=== PATIENT | male | born 1995 | race Two or more races ===

== ENCOUNTER 2024-07-30 00:13 | Observation (INO) ==
--- NOTE | 2024-07-30 00:44 | DR.SORETHR ---
HPI Time Seen Time Seen by Provider: 07/30/24 00:35 Primary Care Physician Primary Care Physician: RIGO HPI Comment HPI Comment: History as below. Complaints Chief Complaint Doctors Comments: Patient is a 28-year-old male in the emergency room with cough congestion and sore throat for 2 weeks. Patient said he has productive cough with yellow sputum. Patient said he has slight wheezing. He denies fever, vomiting or dysuria. He has slight wheezing and chest tightness. Patient said he is a non-smoker and denies history of asthma. Chief Complaint:: Pt ambulatory into ER c/o dry cough, nasal congestion and sore throat x2 weeks. Pt states he has coughed so much he is beginning to lose his breath and feels like he is breathing at a fast rate. Self Treatment fo Chief Complaint: Mucinex COVID-19 Coronavirus risk:travel/contact w/high risk person: No Has patient experienced Coronavirus symptoms: Yes Coronavirus symptoms experienced: Coughing Reviewed Nurses Notes Reviewed: Yes Source History Provided: Friend Mode of Arrival Mode of Arrival: Ambulatory Timing Onset of Chief Complaint: 07/15/24 PMH PMH Past Medical History: No Past Surgical History: No Surgical History: No History Family History History of Family Medical Conditions: No Social History Lives With: Family Lives Where: Home Travel Risk Coronavirus risk:travel/contact w/high risk person: No Has patient experienced Coronavirus symptoms: Yes Coronavirus symptoms experienced: Coughing Infectious screening In the last 2 months have you had wt loss of >10#?: NO Have you had fever, night sweats or hemotysis?: No Have you traveled outside the country in the last 6 months?: Yes Travel History Location: [place] Isolation: Droplet ROS Review of Systems Constitutional: No Symptoms Reported, See HPI and Malaise; negative Fever Eyes: No Symptoms Reported and See HPI ENTM: See HPI, Nose Discharge, Nose Congestion and Throat Pain Respiratoy: See HPI, Productive Cough, Short of Breath and Wheezing Cardiovascular: See HPI and Chest Pain (Chest tightness.) Gastrointestinal/Abdominal: No Symptoms Reported and See HPI; negative Abdominal Pain, Diarrhea, Nausea or Vomiting Genitourinary: No Symptoms Reported and See HPI; negative Dysuria Neurological: See HPI and Headache; negative Dizziness Musculoskeletal: No Symptoms Reported and See HPI; negative Muscle Pain Integumentary: No Symptoms Reported and See HPI Hematologic/Lymphatic: No Symptoms Reported and See HPI Endocrine: No Symptoms Reported and See HPI Psychiatric: No Symptoms Reported and See HPI All Other Systems: Reviewed and Negative PE Vital Signs Vitals: Vital Signs Temperature 98.5 F Pulse Rate [Right Radial] 83 Pulse Rate [Right Radial] 80 Pulse Rate [Right Radial] 80 Pulse Rate 83 Pulse Rate 84 Pulse Rate 90 Pulse Rate 97 Respiratory Rate 22 Respiratory Rate 24 Blood Pressure 127/65 O2 Sat by Pulse Oximetry 98 O2 Sat by Pulse Oximetry 94 O2 Sat by Pulse Oximetry 88 O2 Sat by Pulse Oximetry 90 O2 Sat by Pulse Oximetry 93 O2 Sat by Pulse Oximetry 95 O2 Sat by Pulse Oximetry 89 General Limitations: No Limitations General Appearance: Alert, In Distress and Other (chest retracting.) Head Head Exam: Normal Inspection and Atraumatic Eyes Eye exam: Normal Appearance and PERRL; negative Scleral Icterus or Conjunctival Injection ENT ENT Exam: Normal Exam, Normal Oropharynx, Normal External Ear Exam and TM's Normal Bilaterally External Ear Exam: Normal External Inspection; negative Mastoid Tenderness TM/Canal Exam: Bilateral: Normal Nose Exam: Normal Nose Exam Mouth Exam: Normal Inspection Throat Exam: Normal Inspection; negative Tonsillar Erythema, Tonsillomegaly or Tonsillar Exudate Neck Neck Exam: Normal Inspection and Trachea Midline; negative Tenderness Chest Chest Inspection: Symmetric Chest Wall Rise and Other (chest wall retraction.); negative Tenderness Respiratory Respiratory Exam: Normal Lung Sounds Bilat Respiratory Exam: Bilateral: Wheezing and Bilateral: Rhonchi Cardiovascular Cardiovascular Exam: Regular Rate, Normal Rhythm and Normal Heart Sounds; negative Systolic Murmur or Diastolic Murmur Abdominal Exam Abdominal Exam: Normal Inspection, Normal Bowel Sounds and Soft; negative Tenderness Extremities Extremities Exam: Normal Inspection and Normal Capillary Refill Back Back Exam: Normal Inspection; negative (R) CVA Tenderness or (L) CVA Tenderness Neurologic Neurological Exam: Alert and Oriented X3 Psychiatric Psychiatric Exam: Normal Affect and Normal Mood Skin Skin Exam: Warm and Intact MDM Differential Diagnosis Differential Diagnosis: Streptococcal Pharyngitis, Viral Pharyngitis, URI and Other (Bronchitis, pneumonia, viral syndrome) COURSE Treatment Treatment: See orders done while patient was in the emergency room. Labs and chest x-ray discussed with patient. ABG indicate patient is hypoxic. Patient is placed on 3 L of oxygen. Patient was given Levaquin 750 mg IV piggyback. He is also placed on normal saline, 25 cc an hour. Patient is admitted to hospital for further management. Consultation Consultation Comments: Patient discussed with Dr. Cleary. He will admit patient to hospital for further management. Education/Counseling Education/Counseling: Patient Educated On: Diagnosis ROR Labs Reviewed Laboratory Results Reviewed?: Yes 07/30/24 04:18 07/30/24 04:18 Laboratory: WBC 13.6 X10^3/uL (3.6-10.0) H 07/30/24 00:56 RBC 5.10 X10^6/uL (4.7-6.0) 07/30/24 00:56 Hgb 13.7 g/dL (13.5-18.0) 07/30/24 00:56 Hct 41.1 % (42.0-54.0) L 07/30/24 00:56 MCV 80.6 fL (80.0-100.0) 07/30/24 00:56 MCH 26.8 pg (27.0-34.0) L 07/30/24 00:56 MCHC 33.3 g/dL (33.0-35.0) 07/30/24 00:56 RDW 13.7 % (11.6-16.5) 07/30/24 00:56 Plt Count 302 X10^3/uL (150.0-450.0) 07/30/24 00:56 MPV 7.8 fL (7.4-11.0) 07/30/24 00:56 Neut % (Auto) 73.0 % (42.0-75.0) 07/30/24 00:56 Lymph % (Auto) 15.6 % (21.0-51.0) L 07/30/24 00:56 [place] % (Auto) 5.6 % (0.0-13.0) 07/30/24 00:56 Eos % (Auto) 4.8 % (0.9-2.9) H 07/30/24 00:56 Baso % (Auto) 1.0 % (0.2-1.0) 07/30/24 00:56 Neut # (Auto) 9.9 x10^3/uL (2.2-4.8) H 07/30/24 00:56 Lymph # (Auto) 2.1 X10^3/uL (1.3-2.9) 07/30/24 00:56 [place] # (Auto) 0.8 x10^3/uL (0.3-0.8) 07/30/24 00:56 Eos # (Auto) 0.7 x10^3/uL (0.0-0.2) H 07/30/24 00:56 Baso # (Auto) 0.1 X10^3/uL (0.0-0.1) 07/30/24 00:56 Absolute Nucleated RBC 0.0 /100WBC 07/30/24 00:56 D-Dimer 0.35 ug/ml (0.0-0.57) 07/30/24 01:56 Sample Site Rr 07/30/24 01:08 ABG pH 7.440 (7.35-7.45) 07/30/24 01:08 ABG pCO2 39.0 mmHg (35.0-45.0) 07/30/24 01:08 ABG pO2 55.0 mmHg (80.0-100.0) L 07/30/24 01:08 ABG HCO3 26.5 mmol/L (22-26) H 07/30/24 01:08 ABG O2 Saturation 89.0 % (90-100) L 07/30/24 01:08 ABG Base Excess 2.2 mmol/L (-2.0-2.0) H 07/30/24 01:08 Trevor Test Pos 07/30/24 01:08 A-a Gradient 46.0 mmHg 07/30/24 01:08 FiO2 21.0 07/30/24 01:08 Blood Gas Comments Glenn well ae 07/30/24 01:08 Sodium 141 mmol/L (136-145) 07/30/24 00:56 Corrected Sodium 141 mmol/L (136-145) 07/30/24 00:56 Potassium 3.5 mmol/L (3.5-5.1) 07/30/24 00:56 Chloride 104 mmol/L (98-107) 07/30/24 00:56 Carbon Dioxide 26.6 mmol/L (21-32) 07/30/24 00:56 BUN 13 mg/dL (7-18) 07/30/24 00:56 Creatinine 1.02 mg/dL (0.70-1.30) 07/30/24 00:56 Est GFR (MDRD) Af Amer > 60 (>60) 07/30/24 00:56 Est GFR (MDRD) Non-Af > 60 (>60) 07/30/24 00:56 Glucose 117 mg/dL (65-99) H 07/30/24 00:56 Lactic Acid 0.9 mmol/L (0.4-2.0) 07/30/24 01:56 Calcium 8.6 mg/dL (8.5-10.1) 07/30/24 00:56 Corrected Calcium TNP 07/30/24 00:56 Total Bilirubin 0.70 mg/dL (0.2-1.0) 07/30/24 00:56 AST 38 Units/L (15-37) H 07/30/24 00:56 ALT 47 Units/L (12-78) 07/30/24 00:56 Alkaline Phosphatase 70 Units/L (46-116) 07/30/24 00:56 Total Protein 7.6 g/dL (6.4-8.2) 07/30/24 00:56 Albumin 3.9 g/dL (3.4-5.0) 07/30/24 00:56 Globulin 3.7 g/dL (2.5-4.5) 07/30/24 00:56 Albumin/Globulin Ratio 1.1 Ratio (1.1-2.1) 07/30/24 00:56 SARS-CoV-2 (PCR) Negative (NEGATIVE) 07/30/24 00:35 Influenza Type A (PCR) Negative (NEGATIVE) 07/30/24 00:35 Influenza Type B (PCR) Negative (NEGATIVE) 07/30/24 00:35 RSV (PCR) Negative (NEGATIVE) 07/30/24 00:35 S. pyogenes (TEM-PCR) Not detected (NOT DETECT) 07/30/24 00:35 XRAY XRAY Interpreted by: Self (perihilar prominence.) Opioid Opioid Risk Tool Age ([place] box if 16-45): Yes History of Preadolescent Sexual Abuse: No Total: 1 Total Score Risk Category: Low Risk Copyright: Mishra predicting aberrant behaviors Discharge Plan Diagnosis Discharge Problem: Acute respiratory insufficiency, Hypoxia Pneumonia Qualifiers: Pneumonia type: due to unspecified organism Laterality: right Lung location: l ower lobe of lung Qualified Code(s): J18.9 - Pneumonia, unspecified organism Discharge Plan Patient Disposition: 09 ADMITTED INPATIENT Condition: Stable
[2024-07-30] MEDS: DUONEB 0.5 MG/3 MG (3 mL) NEB ONE ×2 (01:03→07:33)
[2024-07-30 01:05] LABS: BASOPHILS # (AUTO) 0.1 X10^3/uL (0.0-0.1); EOSINOPHILS # (AUTO) 0.7 x10^3/uL (0.0-0.2); EOSINOPHILS % (AUTO) 4.8 % (0.9-2.9); HEMATOCRIT 41.1 % (42.0-54.0); HEMOGLOBIN 13.7 g/dL (13.5-18.0); LYMPHOCYTES # (AUTO) 2.1 X10^3/uL (1.3-2.9); LYMPHOCYTES % (AUTO) 15.6 % (21.0-51.0); MEAN CORPUSCULAR HEMOGLOBIN 26.8 pg (27.0-34.0); MEAN CORPUSCULAR HGB CONC 33.3 g/dL (33.0-35.0); MEAN CORPUSCULAR VOLUME 80.6 fL (80.0-100.0); MEAN PLATELET VOLUME 7.8 fL (7.4-11.0); MONOCYTES # (AUTO) 0.8 x10^3/uL (0.3-0.8); MONOCYTES % (AUTO) 5.6 % (0.0-13.0); NEUTROPHILS # (AUTO) 9.9 x10^3/uL (2.2-4.8); PLATELET COUNT 302 X10^3/uL (150.0-450.0); RED CELL DISTRIBUTION WIDTH 13.7 % (11.6-16.5); WHITE BLOOD COUNT 13.6 X10^3/uL (3.6-10.0)
[2024-07-30 01:13] LABS: ABG ALLEN TEST POS; ABG BASE EXCESS 2.2 mmol/L (-2.0-2.0); ABG HCO3 26.5 mmol/L (22-26)
[2024-07-30 01:16] LABS: ALANINE AMINOTRANSFERASE 47 Units/L (12-78); ALBUMIN 3.9 g/dL (3.4-5.0); ALKALINE PHOSPHATASE 70 Units/L (46-116); ASPARTATE AMINO TRANSFERASE 38 Units/L (15-37); BLOOD UREA NITROGEN 13 mg/dL (7-18); CALCIUM 8.6 mg/dL (8.5-10.1); CARBON DIOXIDE 26.6 mmol/L (21-32); CHLORIDE 104 mmol/L (98-107); COR NA(FOR HYPERGLY) 141 mmol/L (136-145); CREATININE 1.02 mg/dL (0.70-1.30); GLUCOSE 117 mg/dL (65-99); POTASSIUM 3.5 mmol/L (3.5-5.1); SODIUM 141 mmol/L (136-145); TOTAL PROTEIN 7.6 g/dL (6.4-8.2); eGFR NON BLACK RACES > 60 (>60)
[2024-07-30] MEDS: NS 1,000 ML IV 1,000 ML IV SCH (01:46)
[2024-07-30] MEDS: SOLU-Medrol 125 MG VIAL IVP ONE (01:46)
[2024-07-30] MEDS: LEVAQUIN PREMIX IV 750 MG 750 MG/150 ML BAG IV SCH ×2 (01:46→20:10)
[2024-07-30] MEDS ORDERED: TUSSIONEX PENNKINETIC SUSP PO PRN (03:05)
[2024-07-30 03:51] VITALS: BMI 25.8
[2024-07-30] MEDS: DUONEB 0.5 MG/3 MG (3 mL) NEB SCH (04:21)
[2024-07-30 04:52] LABS: BASOPHILS # (AUTO) 0.1 X10^3/uL (0.0-0.1); BASOPHILS % (AUTO) 0.6 % (0.2-1.0); EOSINOPHILS # (AUTO) 0.3 x10^3/uL (0.0-0.2); EOSINOPHILS % (AUTO) 3.5 % (0.9-2.9); HEMATOCRIT 42.4 % (42.0-54.0); HEMOGLOBIN 14.3 g/dL (13.5-18.0); LYMPHOCYTES # (AUTO) 0.9 X10^3/uL (1.3-2.9); LYMPHOCYTES % (AUTO) 9.6 % (21.0-51.0); MEAN CORPUSCULAR HGB CONC 33.8 g/dL (33.0-35.0); MEAN CORPUSCULAR VOLUME 79.9 fL (80.0-100.0); MEAN PLATELET VOLUME 8.2 fL (7.4-11.0); MONOCYTES # (AUTO) 0.2 x10^3/uL (0.3-0.8); MONOCYTES % (AUTO) 2.4 % (0.0-13.0); NEUTROPHILS # (AUTO) 8.1 x10^3/uL (2.2-4.8); NEUTROPHILS % (AUTO) 83.9 % (42.0-75.0); PLATELET COUNT 318 X10^3/uL (150.0-450.0); RED CELL DISTRIBUTION WIDTH 14.1 % (11.6-16.5); WHITE BLOOD COUNT 9.6 X10^3/uL (3.6-10.0)
[2024-07-30 05:03] LABS: ALANINE AMINOTRANSFERASE 44 Units/L (12-78); ALBUMIN 3.8 g/dL (3.4-5.0); ALKALINE PHOSPHATASE 68 Units/L (46-116); ASPARTATE AMINO TRANSFERASE 32 Units/L (15-37); BLOOD UREA NITROGEN 13 mg/dL (7-18); CALCIUM 8.8 mg/dL (8.5-10.1); CARBON DIOXIDE 24.6 mmol/L (21-32); CHLORIDE 102 mmol/L (98-107); CREATININE 0.92 mg/dL (0.70-1.30); GLUCOSE 108 mg/dL (65-99); POTASSIUM 3.4 mmol/L (3.5-5.1); SODIUM 137 mmol/L (136-145); TOTAL PROTEIN 7.7 g/dL (6.4-8.2); eGFR NON BLACK RACES > 60 (>60)
--- NOTE | 2024-07-30 06:58 | RAD ---
EXAMINATION: CHEST, 1 VIEW HISTORY: Pt ambulatory into ER c/o dry cough, nasal congestion and sore throat x2 weeks.; No medical history . COMPARISON STUDY: None. TECHNIQUE: A single view of the chest was obtained. FINDINGS: . Heart size is normal. No acute infiltrates. There is no pneumothorax. Hilar and mediastinal structures and bony structures are unremarkable. . IMPRESSION: No acute process in the chest. THIS IS AN ELECTRONICALLY VERIFIED FINAL REPORT 07/30/2024 6:54 AM - Electronically signed by Lenny Hairston MD
[2024-07-30] MEDS: CONSULT PHARMACY - POTASSIUM & MAGNESIUM XX SCH (07:33)
[2024-07-30] MEDS: PULMICORT NEB TX 0.5 MG NEB SCH (08:11)
[2024-07-30] MEDS: ROBITUSSIN DM PO SCH (08:59)
[2024-07-30] MEDS: VISBIOME PROBIOTIC CAP 112.5 B or equivalent PO SCH (08:59)
[2024-07-30] MEDS: K-DUR TAB 20 MEQ PO ONE (09:00)
--- NOTE | 2024-07-30 11:02 | DR.H&P ---
H&P History & Physical for Day of: H&P Date: 07/30/24 Chief Complaint Chief Complaint: Shortness of breath, cough History of Present Illness History of Present Illness: Mr. Johnson is a 28-year-old male with no pertinent medical problems presented with increased cough and shortness of breath. His symptoms have been gradually worsening for the past 2 weeks. He was taking [id number] medications for cough and Mucinex with no improvement. He did have fever and chills yesterday. Denies any sick contact at home. He recently came from [place] early in June. His symptoms started after his travel. Denies any nausea, vomiting or diarrhea. Denies tobacco use or vaping. ER workup included ABG which did show hypoxia, chest x-ray was negative. D-dimer was negative. WBC was elevated. Rapid flu and COVID were negative, AIT pending. He was started on Levaquin and bronchodilators. He is currently on 3 L nasal cannula. Labs/imaging reviewed: - WBC 9.6 hemoglobin 14.3 potassium 3.4 creatinine 0.92 - AB.44/39/55/26.5 - Chest x-ray: No acute abnormality - D-dimer negative Plan: Wean O2 as tolerated, continue bronchodilators and IS. Continue IV antibiotics. Will add Solu-Medrol [address] chest for further evaluation. Follow AIT results. Continue cough medicine as needed. Continue hydration. Replace electrolytes as per protocol. Monitor a.m. labs and imaging. Time spent for clinical assessment, reviewing labs/imaging, physical exam, decision making and documentation greater than 45 mins. Past Surgical History Surgical History: No History Social History Does patient currently use any type of tobacco product: No Type of Tobacco Use: None Does any household member use tobacco: No Alcohol Use: None Drug Use: None Medications Home Medications: Home Medications Medication Instructions Recorded Confirmed Type NK 07/30/24 07/30/24 History Allergies Allergies Allergy/AdvReac Type Severity Reaction Status Date / Time Penicillins Allergy Severe ANAPHALEXIS Verified 07/30/24 01:33 REACTION Labs 07/30/24 04:18 07/30/24 04:18 Labs: Laboratory WBC 9.6 X10^3/uL (3.6-10.0) 07/30/24 04:18 RBC 5.30 X10^6/uL (4.7-6.0) 07/30/24 04:18 Hgb 14.3 g/dL (13.5-18.0) 07/30/24 04:18 Hct 42.4 % (42.0-54.0) 07/30/24 04:18 MCV 79.9 fL (80.0-100.0) L 07/30/24 04:18 MCH 27.0 pg (27.0-34.0) 07/30/24 04:18 MCHC 33.8 g/dL (33.0-35.0) 07/30/24 04:18 RDW 14.1 % (11.6-16.5) 07/30/24 04:18 Plt Count 318 X10^3/uL (150.0-450.0) 07/30/24 04:18 MPV 8.2 fL (7.4-11.0) 07/30/24 04:18 Neut % (Auto) 83.9 % (42.0-75.0) H 07/30/24 04:18 Lymph % (Auto) 9.6 % (21.0-51.0) L 07/30/24 04:18 [place] % (Auto) 2.4 % (0.0-13.0) 07/30/24 04:18 Eos % (Auto) 3.5 % (0.9-2.9) H 07/30/24 04:18 Baso % (Auto) 0.6 % (0.2-1.0) 07/30/24 04:18 Neut # (Auto) 8.1 x10^3/uL (2.2-4.8) H 07/30/24 04:18 Lymph # (Auto) 0.9 X10^3/uL (1.3-2.9) L 07/30/24 04:18 [place] # (Auto) 0.2 x10^3/uL (0.3-0.8) L 07/30/24 04:18 Eos # (Auto) 0.3 x10^3/uL (0.0-0.2) H 07/30/24 04:18 Baso # (Auto) 0.1 X10^3/uL (0.0-0.1) 07/30/24 04:18 Absolute Nucleated RBC 0.0 /100WBC 07/30/24 04:18 D-Dimer 0.35 ug/ml (0.0-0.57) 07/30/24 01:56 Sample Site Rr 07/30/24 01:08 ABG pH 7.440 (7.35-7.45) 07/30/24 01:08 ABG pCO2 39.0 mmHg (35.0-45.0) 07/30/24 01:08 ABG pO2 55.0 mmHg (80.0-100.0) L 07/30/24 01:08 ABG HCO3 26.5 mmol/L (22-26) H 07/30/24 01:08 ABG O2 Saturation 89.0 % (90-100) L 07/30/24 01:08 ABG Base Excess 2.2 mmol/L (-2.0-2.0) H 07/30/24 01:08 Trevor Test Pos 07/30/24 01:08 A-a Gradient 46.0 mmHg 07/30/24 01:08 FiO2 21.0 07/30/24 01:08 Blood Gas Comments Glenn well ae 07/30/24 01:08 Sodium 137 mmol/L (136-145) 07/30/24 04:18 Corrected Sodium TNP 07/30/24 04:18 Potassium 3.4 mmol/L (3.5-5.1) L 07/30/24 04:18 Chloride 102 mmol/L (98-107) 07/30/24 04:18 Carbon Dioxide 24.6 mmol/L (21-32) 07/30/24 04:18 BUN 13 mg/dL (7-18) 07/30/24 04:18 Creatinine 0.92 mg/dL (0.70-1.30) 07/30/24 04:18 Est GFR (MDRD) Af Amer > 60 (>60) 07/30/24 04:18 Est GFR (MDRD) Non-Af > 60 (>60) 07/30/24 04:18 Glucose 108 mg/dL (65-99) H 07/30/24 04:18 Lactic Acid 0.9 mmol/L (0.4-2.0) 07/30/24 01:56 Calcium 8.8 mg/dL (8.5-10.1) 07/30/24 04:18 Corrected Calcium TNP 07/30/24 04:18 Magnesium 2.1 mg/dL (2.0-2.9) 07/30/24 04:18 Total Bilirubin 0.60 mg/dL (0.2-1.0) 07/30/24 04:18 AST 32 Units/L (15-37) 07/30/24 04:18 ALT 44 Units/L (12-78) 07/30/24 04:18 Alkaline Phosphatase 68 Units/L (46-116) 07/30/24 04:18 Total Protein 7.7 g/dL (6.4-8.2) 07/30/24 04:18 Albumin 3.8 g/dL (3.4-5.0) 07/30/24 04:18 Globulin 3.9 g/dL (2.5-4.5) 07/30/24 04:18 Albumin/Globulin Ratio 1.0 Ratio (1.1-2.1) L 07/30/24 04:18 SARS-CoV-2 (PCR) Negative (NEGATIVE) 07/30/24 00:35 Influenza Type A (PCR) Negative (NEGATIVE) 07/30/24 00:35 Influenza Type B (PCR) Negative (NEGATIVE) 07/30/24 00:35 RSV (PCR) Negative (NEGATIVE) 07/30/24 00:35 S. pyogenes (TEM-PCR) Not detected (NOT DETECT) 07/30/24 00:35 Review of Systems Constitutional: Fever, Chills and Weakness Eyes: No Symptoms Reported ENT: No Symptoms Reported Respiratory: Cough, Shortness of Breath, SOB with Excertion and Sputum Cardiovascular: No Symptoms Reported Gastrointestinal: No Symptoms Reported Genitourinary: No Symptoms Reported Musculoskeletal: No Symptoms Reported Skin: No Symptoms Reported Neurological: No Symptoms Reported Physical Exam Vital Signs: Vital Signs Temperature 98.0 F Temperature 98.2 F Temperature 98.2 F Pulse Rate [Right Radial] 72 Pulse Rate 100 Pulse Rate 89 Pulse Rate 88 Pulse Rate 91 Pulse Rate 99 Pulse Rate 84 Pulse Rate 73 Pulse Rate 85 Pulse Rate 65 Pulse Rate 67 Pulse Rate 66 Pulse Rate 70 Pulse Rate 82 Pulse Rate 68 Pulse Rate 59 Pulse Rate 67 Pulse Rate 67 Pulse Rate 86 Pulse Rate 83 Pulse Rate 72 Respiratory Rate 45 Respiratory Rate 40 Respiratory Rate 34 Respiratory Rate 37 Respiratory Rate 31 Respiratory Rate 38 Respiratory Rate 25 Respiratory Rate 24 Respiratory Rate 27 Respiratory Rate 28 Respiratory Rate 28 Respiratory Rate 29 Respiratory Rate 28 Respiratory Rate 22 Respiratory Rate 32 Blood Pressure [Right Arm] 129/78 Blood Pressure 105/56 Blood Pressure 105/56 Blood Pressure 125/65 Blood Pressure 116/65 Blood Pressure 127/65 Blood Pressure 129/78 O2 Sat by Pulse Oximetry 90 O2 Sat by Pulse Oximetry 95 O2 Sat by Pulse Oximetry 95 O2 Sat by Pulse Oximetry 94 O2 Sat by Pulse Oximetry 93 O2 Sat by Pulse Oximetry 94 O2 Sat by Pulse Oximetry 95 O2 Sat by Pulse Oximetry 95 O2 Sat by Pulse Oximetry 94 O2 Sat by Pulse Oximetry 94 O2 Sat by Pulse Oximetry 94 O2 Sat by Pulse Oximetry 96 O2 Sat by Pulse Oximetry 95 O2 Sat by Pulse Oximetry 94 O2 Sat by Pulse Oximetry 96 O2 Sat by Pulse Oximetry 94 O2 Sat by Pulse Oximetry 95 O2 Sat by Pulse Oximetry 96 O2 Sat by Pulse Oximetry 96 O2 Sat by Pulse Oximetry 72 O2 Sat by Pulse Oximetry 94 Oriented: Normal Respiratory: Diminished Throughout, RLL Exp. Wheeze and LLL Exp. Wheeze Cardiovascular: Tachycardia Auscultation: Bowel Sounds: Normal Palpation: Normal Tenderness: Normal Skin: Normal Musculoskeletal: Normal Psychiatric: Normal Mood Description: Calm Affect: Normal Speech Pattern: Clear Assessment/Plan (1) Acute respiratory failure: Qualifiers: Respiratory failure complication: hypoxia Qualified Code(s): J96.01 - Acute respiratory failure with hypoxia Status: Acute (2) Hypoxia: Status: Acute (3) Pneumonia: Qualifiers: Laterality: right Lung location: lower lobe of lung Pneumonia type: d ue to unspecified organism Qualified Code(s): J18.9 - Pneumonia, unspecified organism Status: Acute (4) Hypokalemia: Status: Acute Review H&P Reviewed: Yes Patient was examined?: Yes
[2024-07-30] MEDS: OMNIPAQUE 350 mg/mL 100 mL BTL 100 ML ONE (11:14)
--- NOTE | 2024-07-30 11:44 | CT ---
EXAMINATION: CHEST W/O CON HISTORY: worsening dyspnea, pt allergic to iodine done noncontrast ; . COMPARISON: Chest x-ray 07/30/2024 TECHNIQUE: Routine axial imaging of the chest was performed. Lack of IV contrast limits diagnostic sensitivity. The above CT scan was done with automated exposure control and the mA and kV was adjusted to obtain quality images according to patient size. FINDINGS: Lungs: Patchy ground-glass opacities within the right upper lobe and right middle lobe may represent infectious or inflammatory process. This could include atypical pneumonia including COVID. Bronchial thickening with atelectasis in the lingula and lower lobes. No suspicious pulmonary nodules or alveolar infiltrates Central Airways: No obstructing endobronchial lesions Pleura: No pleural effusion or pneumothorax Thoracic Aorta: Tapers normally Main Pulmonary Trunk: Normal diameter Lymph Nodes: No pathologic hilar, axillary or mediastinal adenopathy Heart/Pericardium: Normal heart size. No significant pericardial effusion Liver: No acute findings or focal lesions. GB/Biliary: No gallstones or dilated ducts Spleen: Normal size and density Pancreas: No acute findings as visualized Adrenal Glands: No mass Kidneys no hydronephrosis. Abdominal Aorta: Tapers normally Retroperitoneum: No pathologic lymphadenopathy Bowel/Peritoneal Cavity: No acute findings as visualized Osseous Structures: Unremarkable with no acute findings or bony lesions. Other: None IMPRESSION: Ground-glass opacities in the right upper lobe and right middle lobe may represent infectious process including atypical pneumonia or inflammatory process. Follow-up recommended. Bronchial thickening with atelectasis in the lingula and lung bases. The above CT scan was done with automated exposure control and the mA and kV was adjusted to obtain quality images according to patient size THIS IS AN ELECTRONICALLY VERIFIED FINAL REPORT 07/30/2024 11:41 AM - Electronically signed by Lenny Hairston MD
[2024-07-30] MEDS: SOLU-Medrol 125 MG VIAL IVP SCH (12:23)
[2024-07-30] MEDS: XOPENEX 1.25 MG/3 ML NEBULE NEB SCH (20:20)
[2024-07-31] MEDS ORDERED: LEVAQUIN PREMIX IV 750 MG 750 MG/150 ML BAG IV SCH (05:00)
[2024-07-31 05:09] LABS: BASOPHILS % (AUTO) 0.1 % (0.2-1.0); HEMATOCRIT 41.4 % (42.0-54.0); HEMOGLOBIN 13.9 g/dL (13.5-18.0); LYMPHOCYTES # (AUTO) 1.2 X10^3/uL (1.3-2.9); LYMPHOCYTES % (AUTO) 10.9 % (21.0-51.0); MEAN CORPUSCULAR HGB CONC 33.7 g/dL (33.0-35.0); MEAN CORPUSCULAR VOLUME 80.2 fL (80.0-100.0); MEAN PLATELET VOLUME 8.2 fL (7.4-11.0); MONOCYTES # (AUTO) 0.7 x10^3/uL (0.3-0.8); MONOCYTES % (AUTO) 6.2 % (0.0-13.0); NEUTROPHILS % (AUTO) 82.8 % (42.0-75.0); PLATELET COUNT 305 X10^3/uL (150.0-450.0); RED BLOOD COUNT 5.16 X10^6/uL (4.7-6.0); RED CELL DISTRIBUTION WIDTH 14.1 % (11.6-16.5); WHITE BLOOD COUNT 10.9 X10^3/uL (3.6-10.0)
[2024-07-31 05:16] LABS: ALANINE AMINOTRANSFERASE 40 Units/L (12-78); ALBUMIN 3.3 g/dL (3.4-5.0); ALKALINE PHOSPHATASE 70 Units/L (46-116); ASPARTATE AMINO TRANSFERASE 23 Units/L (15-37); BLOOD UREA NITROGEN 12 mg/dL (7-18); CALCIUM 8.8 mg/dL (8.5-10.1); CARBON DIOXIDE 20.3 mmol/L (21-32); CHLORIDE 106 mmol/L (98-107); COR CA(FOR HYPOALB) 9.4 mg/dL (8.5-10.1); COR NA(FOR HYPERGLY) 139 mmol/L (136-145); CREATININE 0.76 mg/dL (0.70-1.30); GLUCOSE 151 mg/dL (65-99); POTASSIUM 4.1 mmol/L (3.5-5.1); SODIUM 138 mmol/L (136-145); TOTAL PROTEIN 7.2 g/dL (6.4-8.2); eGFR NON BLACK RACES > 60 (>60)
--- NOTE | 2024-07-31 10:36 | PCM.PROG ---
Progress Note Progress Note for Day of Date of Exam: 07/31/24 Subjective Subjective: Patient seen at bedside, no acute events overnight. He reports he is feeling better. He is currently admitted for pneumonia and acute respiratory failure. He remains on 3 L nasal cannula. He reports having some cough with mucus. He is currently on antibiotics and steroids. Labs/imaging reviewed: - WBC 10.9 hemoglobin 13.9 potassium 4.1 creatinine 0.76 - Blood cultures pending - CT chest without contrast: Right upper lobe and right middle lobe groundglass opacities, suggestive of viral or atypical pneumonia. Bronchial thickening noted. - AIT pending Plan: Continue to monitor in ICU, wean O2 as tolerated. Continue IV antibiotics, steroids and bronchodilators. Continue IS. Continue hydration, continue cough medicine as needed. Follow AIT results and pending cultures. Replace electrolytes as per protocol. Monitor a.m. labs and imaging. Time spent for clinical assessment, reviewing labs/imaging, physical exam, decision making and documentation greater than 45 mins. Past Medical Family Social History Allergies: Allergies Penicillins Allergy (Severe, Verified 07/30/24 01:33) ANAPHALEXIS REACTION SEAFOOD Allergy (Severe, Verified 07/30/24 11:15) ANAPHALEXIS REACTION Vital Signs and I&O's Vital Signs: Vital Signs Temperature 97.8 F Temperature 98.3 F Pulse Rate 64 Pulse Rate 80 Pulse Rate 65 Pulse Rate 69 Pulse Rate 78 Pulse Rate 72 Pulse Rate 55 Pulse Rate 87 Pulse Rate 68 Pulse Rate 65 Pulse Rate 64 Pulse Rate 65 Respiratory Rate 19 Respiratory Rate 6 Respiratory Rate 32 Respiratory Rate 24 Respiratory Rate 13 Respiratory Rate 25 Respiratory Rate 16 Respiratory Rate 7 Respiratory Rate 24 Respiratory Rate 16 Respiratory Rate 12 Respiratory Rate 17 Respiratory Rate 0 Blood Pressure 120/60 Blood Pressure 121/64 Blood Pressure 122/58 Blood Pressure 127/72 Blood Pressure 119/58 Blood Pressure 119/58 Blood Pressure 124/60 Blood Pressure 124/60 O2 Sat by Pulse Oximetry 96 O2 Sat by Pulse Oximetry 94 O2 Sat by Pulse Oximetry 92 O2 Sat by Pulse Oximetry 91 O2 Sat by Pulse Oximetry 92 O2 Sat by Pulse Oximetry 94 O2 Sat by Pulse Oximetry 93 O2 Sat by Pulse Oximetry 97 O2 Sat by Pulse Oximetry 95 O2 Sat by Pulse Oximetry 91 O2 Sat by Pulse Oximetry 92 O2 Sat by Pulse Oximetry 90 Intake and Output: Intake & Output 07/28/24 07/29/24 07/30/2425 23:59 23:59 23:59 23:59 Intake Total 3015 / 3015 1211 / 1211 Balance 3015 1211 / 1211 Physical Exam Oriented: Normal Throat: Normal Respiratory: Generalized, Wheezes and Rhonchi Cardiovascular: Tachycardia Auscultation: Bowel Sounds: Normal Palpation: Normal Tenderness: Normal Skin: Normal Musculoskeletal: Normal Psychiatric: Normal Mood Description: Calm Affect: Normal Speech Pattern: Clear Laboratory and Diagnostics 07/31/24 04:25 07/31/24 04:25 Labs: Laboratory WBC 10.9 X10^3/uL (3.6-10.0) H 07/31/24 04: RBC 5.16 X10^6/uL (4.7-6.0) 07/31/24 04: Hgb 13.9 g/dL (13.5-18.0) 07/31/24 04: Hct 41.4 % (42.0-54.0) L 07/31/24 04:25 MCV 80.2 fL (80.0-100.0) 07/31/24 04:25 MCH 27.0 pg (27.0-34.0) 07/31/24 04: MCHC 33.7 g/dL (33.0-35.0) 07/31/24 04: RDW 14.1 % (11.6-16.5) 07/31/24 04:25 Plt Count 305 X10^3/uL (150.0-450.0) 07/31/24 04:25 MPV 8.2 fL (7.4-11.0) 07/31/24 04:25 Neut % (Auto) 82.8 % (42.0-75.0) H 07/31/24 04:25 Lymph % (Auto) 10.9 % (21.0-51.0) L 07/31/24 04:25 [place] % (Auto) 6.2 % (0.0-13.0) 07/31/24 04:25 Eos % (Auto) 0.0 % (0.9-2.9) L 07/31/24 04:25 Baso % (Auto) 0.1 % (0.2-1.0) L 07/31/24 04:25 Neut # (Auto) 9.0 x10^3/uL (2.2-4.8) H 07/31/24 04:25 Lymph # (Auto) 1.2 X10^3/uL (1.3-2.9) L 07/31/24 04:25 [place] # (Auto) 0.7 x10^3/uL (0.3-0.8) 07/31/24 04:25 Eos # (Auto) 0.0 x10^3/uL (0.0-0.2) 07/31/24 04:25 Baso # (Auto) 0.0 X10^3/uL (0.0-0.1) 07/31/24 04:25 Absolute Nucleated RBC 0.0 /100WBC 07/31/24 04:25 D-Dimer 0.35 ug/ml (0.0-0.57) 07/30/24 01:56 Sample Site Rr 07/30/24 01:08 ABG pH 7.440 (7.35-7.45) 07/30/24 01:08 ABG pCO2 39.0 mmHg (35.0-45.0) 07/30/24 01:08 ABG pO2 55.0 mmHg (80.0-100.0) L 07/30/24 01:08 ABG HCO3 26.5 mmol/L (22-26) H 07/30/24 01:08 ABG O2 Saturation 89.0 % (90-100) L 07/30/24 01:08 ABG Base Excess 2.2 mmol/L (-2.0-2.0) H 07/30/24 01:08 Trevor Test Pos 07/30/24 01:08 A-a Gradient 46.0 mmHg 07/30/24 01:08 FiO2 21.0 07/30/24 01:08 Blood Gas Comments Glenn well ae 07/30/24 01:08 Sodium 138 mmol/L (136-145) 07/31/24 04:25 Corrected Sodium 139 mmol/L (136-145) 07/31/24 04:25 Potassium 4.1 mmol/L (3.5-5.1) 07/31/24 04:25 Chloride 106 mmol/L (98-107) 07/31/24 04:25 Carbon Dioxide 20.3 mmol/L (21-32) L 07/31/24 04:25 BUN 12 mg/dL (7-18) 07/31/24 04:25 Creatinine 0.76 mg/dL (0.70-1.30) 07/31/24 04:25 Est GFR (MDRD) Af Amer > 60 (>60) 07/31/24 04:25 Est GFR (MDRD) Non-Af > 60 (>60) 07/31/24 04:25 Glucose 151 mg/dL (65-99) H 07/31/24 04:25 Lactic Acid 0.9 mmol/L (0.4-2.0) 07/30/24 01:56 Calcium 8.8 mg/dL (8.5-10.1) 07/31/24 04:25 Corrected Calcium 9.4 mg/dL (8.5-10.1) 07/31/24 04:25 Magnesium 2.1 mg/dL (2.0-2.9) 07/30/24 04:18 Total Bilirubin 0.20 mg/dL (0.2-1.0) 07/31/24 04:25 AST 23 Units/L (15-37) 07/31/24 04:25 ALT 40 Units/L (12-78) 07/31/24 04:25 Alkaline Phosphatase 70 Units/L (46-116) 07/31/24 04:25 Total Protein 7.2 g/dL (6.4-8.2) 07/31/24 04:25 Albumin 3.3 g/dL (3.4-5.0) L 07/31/24 04:25 Globulin 3.9 g/dL (2.5-4.5) 07/31/24 04:25 Albumin/Globulin Ratio 0.8 Ratio (1.1-2.1) L 07/31/24 04:25 SARS-CoV-2 (PCR) Negative (NEGATIVE) 07/30/24 00:35 Influenza Type A (PCR) Negative (NEGATIVE) 07/30/24 00:35 Influenza Type B (PCR) Negative (NEGATIVE) 07/30/24 00:35 RSV (PCR) Negative (NEGATIVE) 07/30/24 00:35 S. pyogenes (TEM-PCR) Not detected (NOT DETECT) 07/30/24 00:35 Plan (1) Acute respiratory failure: Status: Acute Qualifiers: Respiratory failure complication: hypoxia Qualified Code(s): J96.01 - Acute respiratory failure with hypoxia (2) Hypoxia: Status: Acute (3) Pneumonia: Status: Acute Qualifiers: Laterality: right Lung location: lower lobe of lung Pneumonia type: d ue to unspecified organism Qualified Code(s): J18.9 - Pneumonia, unspecified organism (4) Hypokalemia: Status: Acute
[2024-08-01 05:22] LABS: BASOPHILS % (AUTO) 0.2 % (0.2-1.0); HEMATOCRIT 41.2 % (42.0-54.0); HEMOGLOBIN 13.7 g/dL (13.5-18.0); LYMPHOCYTES # (AUTO) 1.1 X10^3/uL (1.3-2.9); MEAN CORPUSCULAR HEMOGLOBIN 26.9 pg (27.0-34.0); MEAN CORPUSCULAR HGB CONC 33.2 g/dL (33.0-35.0); MEAN PLATELET VOLUME 8.3 fL (7.4-11.0); MONOCYTES # (AUTO) 0.6 x10^3/uL (0.3-0.8); MONOCYTES % (AUTO) 4.6 % (0.0-13.0); NEUTROPHILS # (AUTO) 11.9 x10^3/uL (2.2-4.8); NEUTROPHILS % (AUTO) 87.2 % (42.0-75.0); PLATELET COUNT 334 X10^3/uL (150.0-450.0); RED BLOOD COUNT 5.09 X10^6/uL (4.7-6.0); RED CELL DISTRIBUTION WIDTH 14.2 % (11.6-16.5); WHITE BLOOD COUNT 13.6 X10^3/uL (3.6-10.0)
[2024-08-01 05:36] LABS: ALANINE AMINOTRANSFERASE 58 Units/L (12-78); ALBUMIN 3.3 g/dL (3.4-5.0); ALKALINE PHOSPHATASE 80 Units/L (46-116); ASPARTATE AMINO TRANSFERASE 30 Units/L (15-37); BLOOD UREA NITROGEN 14 mg/dL (7-18); CALCIUM 8.5 mg/dL (8.5-10.1); CARBON DIOXIDE 23.1 mmol/L (21-32); CHLORIDE 107 mmol/L (98-107); COR CA(FOR HYPOALB) 9.1 mg/dL (8.5-10.1); COR NA(FOR HYPERGLY) 141 mmol/L (136-145); CREATININE 0.93 mg/dL (0.70-1.30); GLUCOSE 141 mg/dL (65-99); POTASSIUM 3.9 mmol/L (3.5-5.1); SODIUM 140 mmol/L (136-145); TOTAL PROTEIN 6.9 g/dL (6.4-8.2); eGFR NON BLACK RACES > 60 (>60)
--- NOTE | 2024-08-01 07:54 | RAD ---
EXAM: Portable chest HISTORY: Pneumonia COMPARISON: 025 chest x-ray and CT chest FINDINGS: Patient is rotated to the right. Heart is enlarged. No congestive heart failure is noted. [place] are normal. Lungs well inflated. No acute infiltrates are identified. The ground-glass infiltrates visualized in the right upper and right middle lobe on the recent chest CT are still not visible on plain film. No pleural effusion or pneumothorax identified. Bony thorax is unremarkable. IMPRESSION: Lungs remain clear. Ground-glass infiltrates visualized in the right upper and right middle lobes on the recent chest CT are not visible on plain film. THIS IS AN ELECTRONICALLY VERIFIED FINAL REPORT 08/01/2024 7:50 AM - Electronically signed by Riley Miller MD
[2024-08-02 04:52] LABS: BASOPHILS # (AUTO) 0.1 X10^3/uL (0.0-0.1); BASOPHILS % (AUTO) 0.8 % (0.2-1.0); HEMATOCRIT 42.9 % (42.0-54.0); HEMOGLOBIN 14.4 g/dL (13.5-18.0); LYMPHOCYTES # (AUTO) 1.4 X10^3/uL (1.3-2.9); LYMPHOCYTES % (AUTO) 10.3 % (21.0-51.0); MEAN CORPUSCULAR HGB CONC 33.6 g/dL (33.0-35.0); MEAN CORPUSCULAR VOLUME 80.5 fL (80.0-100.0); MEAN PLATELET VOLUME 8.2 fL (7.4-11.0); MONOCYTES # (AUTO) 0.6 x10^3/uL (0.3-0.8); MONOCYTES % (AUTO) 4.2 % (0.0-13.0); NEUTROPHILS # (AUTO) 11.2 x10^3/uL (2.2-4.8); NEUTROPHILS % (AUTO) 84.7 % (42.0-75.0); PLATELET COUNT 346 X10^3/uL (150.0-450.0); RED BLOOD COUNT 5.32 X10^6/uL (4.7-6.0); RED CELL DISTRIBUTION WIDTH 14.1 % (11.6-16.5); WHITE BLOOD COUNT 13.2 X10^3/uL (3.6-10.0)
[2024-08-02 05:03] LABS: ALANINE AMINOTRANSFERASE 75 Units/L (12-78); ALBUMIN 3.5 g/dL (3.4-5.0); ALKALINE PHOSPHATASE 73 Units/L (46-116); ASPARTATE AMINO TRANSFERASE 26 Units/L (15-37); BLOOD UREA NITROGEN 12 mg/dL (7-18); CARBON DIOXIDE 24.2 mmol/L (21-32); CHLORIDE 104 mmol/L (98-107); COR NA(FOR HYPERGLY) 139 mmol/L (136-145); CREATININE 0.86 mg/dL (0.70-1.30); GLUCOSE 130 mg/dL (65-99); POTASSIUM 4.2 mmol/L (3.5-5.1); SODIUM 138 mmol/L (136-145); TOTAL PROTEIN 7.4 g/dL (6.4-8.2); eGFR NON BLACK RACES > 60 (>60)
--- NOTE | 2024-08-02 09:40 | PCM.PROG ---
Progress Note Progress Note for Day of Date of Exam: 08/01/24 Subjective Subjective: Patient is a 28 year old male admitted for pneumonia and acute respiratory failure. This morning he is resting in bed. No acute events overnight. He remains on 2 L nasal cannula. He is currently on antibiotics and steroids. Labs/imaging reviewed: - WBC 13.6, hemoglobin 13.7, Plt 334, Na 140, potassium 3.9, creatinine 0.93, Glucose 141 - Blood cultures NGTD - CT chest without contrast: Right upper lobe and right middle lobe groundglass opacities, suggestive of viral or atypical pneumonia. Bronchial thickening noted. - AIT negative Plan: Continue to monitor in ICU, wean O2 as tolerated. Continue IV antibiotics, steroids and bronchodilators. Continue IS. Continue hydration, continue cough medicine as needed. Replace electrolytes as per protocol. Monitor a.m. labs and imaging. Time spent for clinical assessment, reviewing labs/imaging, physical exam, decision making and documentation greater than 45 mins. Past Medical Family Social History Allergies: Allergies Penicillins Allergy (Severe, Verified 07/30/24 01:33) ANAPHALEXIS REACTION SEAFOOD Allergy (Severe, Verified 07/30/24 11:15) ANAPHALEXIS REACTION Review of Systems ROS changes noted: see HPI Vital Signs and I&O's Vital Signs: Vital Signs Temperature 98 F Temperature 98.8 F Pulse Rate 65 Pulse Rate 56 Pulse Rate 72 Pulse Rate 57 Respiratory Rate 25 Respiratory Rate 23 Respiratory Rate 22 Blood Pressure 113/70 Blood Pressure 118/69 Blood Pressure 138/81 O2 Sat by Pulse Oximetry 94 O2 Sat by Pulse Oximetry 95 O2 Sat by Pulse Oximetry 92 O2 Sat by Pulse Oximetry 96 Intake and Output: Intake & Output 07/30/24 07/31/24 08/01/24 08/02/24 23:59 23:59 23:59 23:59 Intake Total 3016 / 3016 4298 / 4298 4336 / 4336 1110 / 1110 Output Total 2800 / 2800 900 / 900 Balance 3016 / 3016 4298 / 4298 1536 / 1536 210 / 210 Physical Exam Oriented: Normal Throat: Normal Respiratory: Generalized and Wheezes Cardiovascular: Tachycardia Auscultation: Bowel Sounds: Normal Tenderness: Normal Skin: Normal Musculoskeletal: Normal Psychiatric: Normal Mood Description: Calm Affect: Normal Speech Pattern: Clear Laboratory and Diagnostics 08/02/24 04:23 08/02/24 04:23 Labs: 08/01/24 09:20 Sputum - Expectorated Sputum Sputum Culture - Preliminary 08/01/24 09:20 Sputum - Expectorated Sputum - Final 07/30/24 02:02 Blood Blood Culture - Preliminary 07/30/24 01:56 Blood Blood Culture - Preliminary Laboratory WBC 13.2 X10^3/uL (3.6-10.0) H 08/02/24 04:23 RBC 5.32 X10^6/uL (4.7-6.0) 08/02/24 04:23 Hgb 14.4 g/dL (13.5-18.0) 08/02/24 04:23 Hct 42.9 % (42.0-54.0) 08/02/24 04:23 MCV 80.5 fL (80.0-100.0) 08/02/24 04:23 MCH 27.0 pg (27.0-34.0) 08/02/24 04:23 MCHC 33.6 g/dL (33.0-35.0) 08/02/24 04:23 RDW 14.1 % (11.6-16.5) 08/02/24 04:23 Plt Count 346 X10^3/uL (150.0-450.0) 08/02/24 04:23 MPV 8.2 fL (7.4-11.0) 08/02/24 04:23 Neut % (Auto) 84.7 % (42.0-75.0) H 08/02/24 04:23 Lymph % (Auto) 10.3 % (21.0-51.0) L 08/02/24 04:23 [place] % (Auto) 4.2 % (0.0-13.0) 08/02/24 04:23 Eos % (Auto) 0.0 % (0.9-2.9) L 08/02/24 04:23 Baso % (Auto) 0.8 % (0.2-1.0) 08/02/24 04:23 Neut # (Auto) 11.2 x10^3/uL (2.2-4.8) H 08/02/24 04:23 Lymph # (Auto) 1.4 X10^3/uL (1.3-2.9) 08/02/24 04:23 [place] # (Auto) 0.6 x10^3/uL (0.3-0.8) 08/02/24 04:23 Eos # (Auto) 0.0 x10^3/uL (0.0-0.2) 08/02/24 04:23 Baso # (Auto) 0.1 X10^3/uL (0.0-0.1) 08/02/24 04:23 Absolute Nucleated RBC 0.1 /100WBC 08/02/24 04:23 D-Dimer 0.35 ug/ml (0.0-0.57) 07/30/24 01:56 Sample Site Rr 07/30/24 01:08 ABG pH 7.440 (7.35-7.45) 07/30/24 01:08 ABG pCO2 39.0 mmHg (35.0-45.0) 07/30/24 01:08 ABG pO2 55.0 mmHg (80.0-100.0) L 07/30/24 01:08 ABG HCO3 26.5 mmol/L (22-26) H 07/30/24 01:08 ABG O2 Saturation 89.0 % (90-100) L 07/30/24 01:08 ABG Base Excess 2.2 mmol/L (-2.0-2.0) H 07/30/24 01:08 [place] Test Pos 07/30/24 01:08 A-a Gradient 46.0 mmHg 07/30/24 01:08 FiO2 21.0 07/30/24 01:08 Blood Gas Comments Glenn well ae 07/30/24 01:08 Sodium 138 mmol/L (136-145) 08/02/24 04:23 Corrected Sodium 139 mmol/L (136-145) 08/02/24 04:23 Potassium 4.2 mmol/L (3.5-5.1) 08/02/24 04:23 Chloride 104 mmol/L (98-107) 08/02/24 04:23 Carbon Dioxide 24.2 mmol/L (21-32) 08/02/24 04:23 BUN 12 mg/dL (7-18) 08/02/24 04:23 Creatinine 0.86 mg/dL (0.70-1.30) 08/02/24 04:23 Est GFR (MDRD) Af Amer > 60 (>60) 08/02/24 04:23 Est GFR (MDRD) Non-Af > 60 (>60) 08/02/24 04:23 Glucose 130 mg/dL (65-99) H 08/02/24 04:23 Lactic Acid 0.9 mmol/L (0.4-2.0) 07/30/24 01:56 Calcium 9.0 mg/dL (8.5-10.1) 08/02/24 04:23 Corrected Calcium TNP 08/02/24 04:23 Magnesium 2.1 mg/dL (2.0-2.9) 07/30/24 04:18 Total Bilirubin 0.20 mg/dL (0.2-1.0) 08/02/24 04:23 AST 26 Units/L (15-37) 08/02/24 04:23 ALT 75 Units/L (12-78) 08/02/24 04:23 Alkaline Phosphatase 73 Units/L (46-116) 08/02/24 04:23 Total Protein 7.4 g/dL (6.4-8.2) 08/02/24 04:23 Albumin 3.5 g/dL (3.4-5.0) 08/02/24 04:23 Globulin 3.9 g/dL (2.5-4.5) 08/02/24 04:23 Albumin/Globulin Ratio 0.9 Ratio (1.1-2.1) L 08/02/24 04:23 SARS-CoV-2 (PCR) Negative (NEGATIVE) 07/30/24 00:35 Influenza Type A (PCR) Negative (NEGATIVE) 07/30/24 00:35 Influenza Type B (PCR) Negative (NEGATIVE) 07/30/24 00:35 RSV (PCR) Negative (NEGATIVE) 07/30/24 00:35 Resp Viral Panel (PCR) See scanned report 07/30/24 03:15 S. pyogenes (TEM-PCR) Not detected (NOT DETECT) 07/30/24 00:35 Plan (1) Acute respiratory failure: Status: Acute Qualifiers: Respiratory failure complication: hypoxia Qualified Code(s): J96.01 - Acute respiratory failure with hypoxia (2) Hypoxia: Status: Acute (3) Pneumonia: Status: Acute Qualifiers: Laterality: right Lung location: lower lobe of lung Pneumonia type: d ue to unspecified organism Qualified Code(s): J18.9 - Pneumonia, unspecified organism (4) Hypokalemia: Status: Acute
[2024-08-03] MEDS ORDERED: MILK OF MAGNESIA PO PRN (03:35)
[2024-08-03 04:53] LABS: BASOPHILS # (AUTO) 0.1 X10^3/uL (0.0-0.1); BASOPHILS % (AUTO) 0.5 % (0.2-1.0); HEMOGLOBIN 14.2 g/dL (13.5-18.0); LYMPHOCYTES # (AUTO) 1.3 X10^3/uL (1.3-2.9); LYMPHOCYTES % (AUTO) 8.9 % (21.0-51.0); MEAN CORPUSCULAR HEMOGLOBIN 26.7 pg (27.0-34.0); MEAN CORPUSCULAR HGB CONC 33.1 g/dL (33.0-35.0); MEAN CORPUSCULAR VOLUME 80.7 fL (80.0-100.0); MEAN PLATELET VOLUME 8.1 fL (7.4-11.0); MONOCYTES # (AUTO) 0.5 x10^3/uL (0.3-0.8); MONOCYTES % (AUTO) 3.7 % (0.0-13.0); NEUTROPHILS # (AUTO) 12.3 x10^3/uL (2.2-4.8); NEUTROPHILS % (AUTO) 86.9 % (42.0-75.0); PLATELET COUNT 355 X10^3/uL (150.0-450.0); RED BLOOD COUNT 5.33 X10^6/uL (4.7-6.0); RED CELL DISTRIBUTION WIDTH 14.3 % (11.6-16.5); WHITE BLOOD COUNT 14.1 X10^3/uL (3.6-10.0)
[2024-08-03 05:04] LABS: ALANINE AMINOTRANSFERASE 77 Units/L (12-78); ALBUMIN 3.3 g/dL (3.4-5.0); ALKALINE PHOSPHATASE 68 Units/L (46-116); ASPARTATE AMINO TRANSFERASE 22 Units/L (15-37); BLOOD UREA NITROGEN 12 mg/dL (7-18); CALCIUM 8.8 mg/dL (8.5-10.1); CHLORIDE 104 mmol/L (98-107); COR CA(FOR HYPOALB) 9.4 mg/dL (8.5-10.1); COR NA(FOR HYPERGLY) 141 mmol/L (136-145); CREATININE 0.77 mg/dL (0.70-1.30); GLUCOSE 129 mg/dL (65-99); POTASSIUM 3.9 mmol/L (3.5-5.1); SODIUM 140 mmol/L (136-145); TOTAL PROTEIN 6.9 g/dL (6.4-8.2); eGFR NON BLACK RACES > 60 (>60)
[2024-08-03 12:13] VITALS: O2SAT 97
[2024-08-03 15:36] VITALS: BP 138/84; PULSE 87; RESP 20; TEMP 98.2
--- NOTE | 2024-08-07 10:56 | W.DIS.FURT ---
Summary of Discharge Discharge Summary of Date Date of Exam: 08/05/24 Admission Date Date of Admission: 08/03/24 Admission Diagnosis Patient Problems (Updated 07/30/24 @ 11:02 by Liliam Traylor MD) Hypoxia (Acute) R09.02 Acute respiratory insufficiency (Acute) R06.89 Pneumonia (Acute) J18.9 Hospital Course: Mr. Johnson is a 28-year-old male with no pertinent medical problems presented with increased cough and shortness of breath. His symptoms have been gradually worsening for the past 2 weeks. He was taking [id number] medications for cough and Mucinex with no improvement. He did have fever and chills yesterday. Denies any sick contact at home. He recently came from [place] early in June. His symptoms started after his travel. Denies any nausea, vomiting or diarrhea. Denies tobacco use or vaping. ER workup included ABG which did show hypoxia, chest x-ray was negative. D-dimer was negative. WBC was elevated. Rapid flu and COVID were negative, AIT and cultures were collected. He was started on Levaquin and bronchodilators. He was initially on 3L NC. His labs are monitored daily and electrolytes replace as needed. He was continued on bronchodilators and IS. He was also started on IV steroids. CT chest was done which showed groundglass opacities suggestive of infectious process. His oxygen was weaned down as tolerated. He was tolerating p.o. intake. He was able to ambulate in the room. Respiratory was working with the patient and patient did well on room air. His AIT and cultures were negative. He was stable to be discharged home. He will follow-up with PCP as scheduled. Vital Signs: Vital Signs (72 hours) 07/31/24 16:00 07/31/24 16:00 07/31/24 16:00 Temperature 98.8 F Pulse Rate 91 H Respiratory Rate 21 Blood Pressure 129/64 129/64 O2 Sat by Pulse Oximetry 93 L Oxygen Delivery Method Nasal Cannula Oxygen Flow Rate 2 FIO2% 07/31/24 16:15 07/31/24 17:00 07/31/24 17:00 Temperature Pulse Rate 87 Respiratory Rate 24 Blood Pressure 126/60 O2 Sat by Pulse Oximetry 92 L Oxygen Delivery Method Nasal Cannula Oxygen Flow Rate 2 FIO2% 28 07/31/24 18:00 07/31/24 18:00 07/31/24 19:00 Temperature Pulse Rate 84 Respiratory Rate 14 Blood Pressure 129/60 O2 Sat by Pulse Oximetry 96 Oxygen Delivery Method Nasal Cannula Oxygen Flow Rate 3 FIO2% 07/31/24 19:00 07/31/24 19:00 07/31/24 20:00 Temperature Pulse Rate 97 H 79 Respiratory Rate 34 H 16 Blood Pressure 131/62 122/59 O2 Sat by Pulse Oximetry 92 L 94 L Oxygen Delivery Method Nasal Cannula Oxygen Flow Rate 2 FIO2% 07/31/24 20:00 07/31/24 20:00 07/31/24 21:00 Temperature Pulse Rate 83 Respiratory Rate 25 H Blood Pressure 122/59 132/65 O2 Sat by Pulse Oximetry 93 L Oxygen Delivery Method Oxygen Flow Rate FIO2% 07/31/24 21:00 07/31/24 21:10 07/31/24 21:12 Temperature Pulse Rate 86 81 Respiratory Rate 29 H Blood Pressure O2 Sat by Pulse Oximetry 95 95 Oxygen Delivery Method Nasal Cannula Oxygen Flow Rate 2 FIO2% 28 07/31/24 22:00 07/31/24 22:00 07/31/24 23:00 Temperature Pulse Rate 83 87 Respiratory Rate 34 H 35 H Blood Pressure 129/66 O2 Sat by Pulse Oximetry 95 94 L Oxygen Delivery Method Oxygen Flow Rate FIO2% 07/31/24 23:00 08/01/24 00:00 08/01/24 00:00 Temperature Pulse Rate 73 75 Respiratory Rate 20 34 H Blood Pressure 120/62 119/59 O2 Sat by Pulse Oximetry 94 L 93 L Oxygen Delivery Method Nasal Cannula Oxygen Flow Rate 2 FIO2% 08/01/24 00:00 08/01/24 01:00 08/01/24 01:00 Temperature Pulse Rate 91 H Respiratory Rate 34 H Blood Pressure 119/59 122/68 O2 Sat by Pulse Oximetry 95 Oxygen Delivery Method Oxygen Flow Rate FIO2% 08/01/24 02:00 08/01/24 02:00 08/01/24 03:00 Temperature Pulse Rate 68 64 Respiratory Rate 35 H 32 H Blood Pressure 124/63 O2 Sat by Pulse Oximetry 94 L 94 L Oxygen Delivery Method Oxygen Flow Rate FIO2% 08/01/24 03:00 08/01/24 04:00 08/01/24 04:00 Temperature Pulse Rate 61 59 L Respiratory Rate 24 26 H Blood Pressure 121/68 124/67 O2 Sat by Pulse Oximetry 95 94 L Oxygen Delivery Method Nasal Cannula Oxygen Flow Rate 2 FIO2% 08/01/24 04:00 08/01/24 05:00 08/01/24 05:00 Temperature Pulse Rate 60 Respiratory Rate 30 H Blood Pressure 124/67 123/59 O2 Sat by Pulse Oximetry 94 L Oxygen Delivery Method Oxygen Flow Rate FIO2% 08/01/24 06:00 08/01/24 06:00 08/01/24 07:00 Temperature Pulse Rate 59 L Respiratory Rate 24 Blood Pressure 127/64 125/67 O2 Sat by Pulse Oximetry 95 Oxygen Delivery Method Oxygen Flow Rate FIO2% 08/01/24 07:00 08/01/24 07:58 08/01/24 08:00 Temperature Pulse Rate 56 L 64 Respiratory Rate 22 30 H Blood Pressure O2 Sat by Pulse Oximetry 95 97 Oxygen Delivery Method Nasal Cannula Oxygen Flow Rate 2 FIO2% 28 08/01/24 08:00 08/01/24 08:58 08/01/24 09:00 Temperature 97.5 F L Pulse Rate Respiratory Rate 21 Blood Pressure 127/58 O2 Sat by Pulse Oximetry Oxygen Delivery Method Nasal Cannula Oxygen Flow Rate 3 FIO2% 08/01/24 09:00 08/01/24 09:00 08/01/24 10:00 Temperature Pulse Rate 77 Respiratory Rate 26 H Blood Pressure 117/58 120/58 O2 Sat by Pulse Oximetry 91 L Oxygen Delivery Method Oxygen Flow Rate FIO2% 08/01/24 10:00 08/01/24 11:00 08/01/24 11:00 Temperature Pulse Rate 64 58 L Respiratory Rate 26 H 20 Blood Pressure 128/60 O2 Sat by Pulse Oximetry 95 96 Oxygen Delivery Method Oxygen Flow Rate FIO2% 08/01/24 12:00 08/01/24 12:00 08/01/24 12:16 Temperature Pulse Rate 72 Respiratory Rate 28 H 17 Blood Pressure 134/68 O2 Sat by Pulse Oximetry 93 L Oxygen Delivery Method Oxygen Flow Rate FIO2% 08/01/24 12:40 08/01/24 13:00 08/01/24 13:00 Temperature Pulse Rate 77 Respiratory Rate 39 H Blood Pressure 126/64 O2 Sat by Pulse Oximetry 95 Oxygen Delivery Method Nasal Cannula Oxygen Flow Rate 28 FIO2% 2 08/01/24 14:00 08/01/24 14:00 08/01/24 15:00 Temperature Pulse Rate 68 Respiratory Rate 18 Blood Pressure 131/64 140/64 O2 Sat by Pulse Oximetry 94 L Oxygen Delivery Method Oxygen Flow Rate FIO2% 08/01/24 15:00 08/01/24 15:54 08/01/24 19:00 Temperature 98.2 F 98.7 F Pulse Rate 70 68 Respiratory Rate 28 H 21 26 H Blood Pressure 133/65 O2 Sat by Pulse Oximetry 95 94 L Oxygen Delivery Method Nasal Cannula Oxygen Flow Rate 2 FIO2% 08/01/24 19:00 08/01/24 21:05 08/01/24 21:08 Temperature Pulse Rate 91 H Respiratory Rate Blood Pressure O2 Sat by Pulse Oximetry 94 L Oxygen Delivery Method Nasal Cannula Nasal Cannula Oxygen Flow Rate 2 2 FIO2% 28 08/01/24 23:00 08/02/24 00:00 08/02/24 04:00 Temperature 98.3 F 98.8 F Pulse Rate 80 75 57 L Respiratory Rate 22 23 22 Blood Pressure 133/68 141/70 138/81 O2 Sat by Pulse Oximetry 93 L 93 L 96 Oxygen Delivery Method Nasal Cannula Nasal Cannula Nasal Cannula Oxygen Flow Rate 2 2 2 FIO2% 08/02/24 07:00 08/02/24 07:00 08/02/24 07:19 Temperature 98 F Pulse Rate 72 Respiratory Rate 23 Blood Pressure 118/69 O2 Sat by Pulse Oximetry 92 L Oxygen Delivery Method Nasal Cannula Nasal Cannula Oxygen Flow Rate 2 2 FIO2% 08/02/24 08:00 08/02/24 08:28 08/02/24 08:29 Temperature Pulse Rate 56 L 65 Respiratory Rate 25 H Blood Pressure 113/70 O2 Sat by Pulse Oximetry 95 94 L Oxygen Delivery Method Nasal Cannula Nasal Cannula Oxygen Flow Rate 2 2 FIO2% 28 08/02/24 09:00 08/02/24 10:00 08/02/24 10:12 Temperature Pulse Rate 69 61 Respiratory Rate 26 H 31 H 26 H Blood Pressure 119/58 119/60 O2 Sat by Pulse Oximetry 93 L 91 L 92 L Oxygen Delivery Method Nasal Cannula Nasal Cannula Nasal Cannula Oxygen Flow Rate 2 2 2 FIO2% 08/02/24 11:00 08/02/24 12:39 08/02/24 12:40 Temperature Pulse Rate 62 89 80 Respiratory Rate 29 H 15 29 H Blood Pressure 116/61 132/66 O2 Sat by Pulse Oximetry 92 L 89 L 90 L Oxygen Delivery Method Oxygen Flow Rate FIO2% 08/02/24 13:00 08/02/24 16:42 08/02/24 19:00 Temperature 98.5 F 98.1 F Pulse Rate 91 H Respiratory Rate 20 Blood Pressure 130/74 O2 Sat by Pulse Oximetry 98 Oxygen Delivery Method Nasal Cannula Nasal Cannula Oxygen Flow Rate 2 2 FIO2% 08/02/24 20:00 08/02/24 20:07 08/02/24 20:40 Temperature 97.9 F Pulse Rate 70 77 Respiratory Rate 19 Blood Pressure 130/66 O2 Sat by Pulse Oximetry 97 98 Oxygen Delivery Method Nasal Cannula Nasal Cannula Oxygen Flow Rate 2 2 FIO2% 28 08/03/24 00:00 08/03/24 04:00 08/03/24 07:00 Temperature 98.3 F 97.6 F Pulse Rate 64 55 L Respiratory Rate 19 19 Blood Pressure 131/75 114/68 O2 Sat by Pulse Oximetry 97 98 Oxygen Delivery Method Nasal Cannula Nasal Cannula Nasal Cannula Oxygen Flow Rate 2 2 2 FIO2% 08/03/24 08:00 08/03/24 08:43 08/03/24 08:46 Temperature 97.5 F L Pulse Rate 55 L 64 Respiratory Rate 20 Blood Pressure 116/64 O2 Sat by Pulse Oximetry 96 95 Oxygen Delivery Method Nasal Cannula Nasal Cannula Oxygen Flow Rate 2 FIO2% 08/03/24 12:00 08/03/24 12:38 Temperature 97.7 F Pulse Rate 59 L Respiratory Rate 19 Blood Pressure 120/68 O2 Sat by Pulse Oximetry 97 97 Oxygen Delivery Method Nasal Cannula Room Air Oxygen Flow Rate 2 FIO2% Labs: Laboratory Last Values WBC 14.1 X10^3/uL (3.6-10.0) H 08/03/24 04:30 RBC 5.33 X10^6/uL (4.7-6.0) 08/03/24 04:30 Hgb 14.2 g/dL (13.5-18.0) 08/03/24 04:30 Hct 43.0 % (42.0-54.0) 08/03/24 04:30 MCV 80.7 fL (80.0-100.0) 08/03/24 04:30 MCH 26.7 pg (27.0-34.0) L 08/03/24 04:30 MCHC 33.1 g/dL (33.0-35.0) 08/03/24 04:30 RDW 14.3 % (11.6-16.5) 08/03/24 04:30 Plt Count 355 X10^3/uL (150.0-450.0) 08/03/24 04:30 MPV 8.1 fL (7.4-11.0) 08/03/24 04:30 Neut % (Auto) 86.9 % (42.0-75.0) H 08/03/24 04:30 Lymph % (Auto) 8.9 % (21.0-51.0) L 08/03/24 04:30 [place] % (Auto) 3.7 % (0.0-13.0) 08/03/24 04:30 Eos % (Auto) 0.0 % (0.9-2.9) L 08/03/24 04:30 Baso % (Auto) 0.5 % (0.2-1.0) 08/03/24 04:30 Neut # (Auto) 12.3 x10^3/uL (2.2-4.8) H 08/03/24 04:30 Lymph # (Auto) 1.3 X10^3/uL (1.3-2.9) 08/03/24 04:30 [place] # (Auto) 0.5 x10^3/uL (0.3-0.8) 08/03/24 04:30 Eos # (Auto) 0.0 x10^3/uL (0.0-0.2) 08/03/24 04:30 Baso # (Auto) 0.1 X10^3/uL (0.0-0.1) 08/03/24 04:30 Absolute Nucleated RBC 0.1 /100WBC 08/03/24 04:30 D-Dimer 0.35 ug/ml (0.0-0.57) 07/30/24 01:56 Sample Site Rr 07/30/24 01:08 ABG pH 7.440 (7.35-7.45) 07/30/24 01:08 ABG pCO2 39.0 mmHg (35.0-45.0) 07/30/24 01:08 ABG pO2 55.0 mmHg (80.0-100.0) L 07/30/24 01:08 ABG HCO3 26.5 mmol/L (22-26) H 07/30/24 01:08 ABG O2 Saturation 89.0 % (90-100) L 07/30/24 01:08 ABG Base Excess 2.2 mmol/L (-2.0-2.0) H 07/30/24 01:08 Trevor Test Pos 07/30/24 01:08 A-a Gradient 46.0 mmHg 07/30/24 01:08 FiO2 21.0 07/30/24 01:08 Blood Gas Comments Glenn well ae 07/30/24 01:08 Sodium 140 mmol/L (136-145) 08/03/24 04:30 Corrected Sodium 141 mmol/L (136-145) 08/03/24 04:30 Potassium 3.9 mmol/L (3.5-5.1) 08/03/24 04:30 Chloride 104 mmol/L (98-107) 08/03/24 04:30 Carbon Dioxide 28.0 mmol/L (21-32) 08/03/24 04:30 BUN 12 mg/dL (7-18) 08/03/24 04:30 Creatinine 0.77 mg/dL (0.70-1.30) 08/03/24 04:30 Est GFR (MDRD) Af Amer > 60 (>60) 08/03/24 04:30 Est GFR (MDRD) Non-Af > 60 (>60) 08/03/24 04:30 Glucose 129 mg/dL (65-99) H 08/03/24 04:30 Lactic Acid 0.9 mmol/L (0.4-2.0) 07/30/24 01:56 Calcium 8.8 mg/dL (8.5-10.1) 08/03/24 04:30 Corrected Calcium 9.4 mg/dL (8.5-10.1) 08/03/24 04:30 Magnesium 2.1 mg/dL (2.0-2.9) 07/30/24 04:18 Total Bilirubin 0.30 mg/dL (0.2-1.0) 08/03/24 04:30 AST 22 Units/L (15-37) 08/03/24 04:30 ALT 77 Units/L (12-78) 08/03/24 04:30 Alkaline Phosphatase 68 Units/L (46-116) 08/03/24 04:30 Total Protein 6.9 g/dL (6.4-8.2) 08/03/24 04:30 Albumin 3.3 g/dL (3.4-5.0) L 08/03/24 04:30 Globulin 3.6 g/dL (2.5-4.5) 08/03/24 04:30 Albumin/Globulin Ratio 0.9 Ratio (1.1-2.1) L 08/03/24 04:30 SARS-CoV-2 (PCR) Negative (NEGATIVE) 07/30/24 00:35 Influenza Type A (PCR) Negative (NEGATIVE) 07/30/24 00:35 Influenza Type B (PCR) Negative (NEGATIVE) 07/30/24 00:35 RSV (PCR) Negative (NEGATIVE) 07/30/24 00:35 Resp Viral Panel (PCR) See scanned report 07/30/24 03:15 S. pyogenes (TEM-PCR) Not detected (NOT DETECT) 07/30/24 00:35 Reason For Visit: ACUTE RESPIRATORY INSUFFICIENCY, HYPOXIE, Discharge Diagnosis All Active Problems (Updated 07/30/24 @ 11:02 by Liliam Traylor MD) Hypokalemia (Acute) Acute respiratory failure (Acute) Hypoxia (Acute) Acute respiratory insufficiency (Acute) Pneumonia (Acute) Plan of Treatment: Continue with present treatment and follow up plan. Pt is to keep follow up appointment as instructed and take medications as ordered. Discharge Medications Discharge Medications: Penicillins Allergy (Severe, Verified 07/30/24 01:33) ANAPHALEXIS REACTION SEAFOOD Allergy (Severe, Verified 07/30/24 11:15) ANAPHALEXIS REACTION New Prescriptions levofloxacin 750 mg tablet 750 mg PO QDAY #5 tabs 08/02/24 [Rx] prednisone 20 mg tablet 40 mg (2 x 20 mg) PO QDAY #5 tabs 08/02/24 [Rx] Discharge Disposition Discharge Disposition: To home Discharge Condition: Stable Discharge Plan Discharge Plan Hospital Course: Mr. Johnson is a 28-year-old male with no pertinent medical problems presented with increased cough and shortness of breath. His symptoms have been gradually worsening for the past 2 weeks. He was taking [id number] medications for cough and Mucinex with no improvement. He did have fever and chills yesterday. Denies any sick contact at home. He recently came from [place] early in June. His symptoms started after his travel. Denies any nausea, vomiting or diarrhea. Denies tobacco use or vaping. ER workup included ABG which did show hypoxia, chest x-ray was negative. D-dimer was negative. WBC was elevated. Rapid flu and COVID were negative, AIT and cultures were collected. He was started on Levaquin and bronchodilators. He was initially on 3L NC. His labs are monitored daily and electrolytes replace as needed. He was continued on bronchodilators and IS. He was also started on IV steroids. CT chest was done which showed groundglass opacities suggestive of infectious process. His oxygen was weaned down as tolerated. He was tolerating p.o. intake. He was able to ambulate in the room. Respiratory was working with the patient and patient did well on room air. His AIT and cultures were negative. He was stable to be discharged home. He will follow-up with PCP as scheduled. Patient Disposition: 01 HOME, SELF-CARE Condition: Stable Health Concerns: Post Hospitalization: new medications and changes needed to prevent readmission or further decline. Pt educated and given instructions on all concerns. Care Plan Goals: Problem: Pain/Alteration in Comfort Goal: Improve/ Resolve Pain; Achieve Pain Tolerance Instructions: Take pain medications as prescribed. Contact your primary care provider if your pain is unrelieved or worsens. Follow up with primary care provider as directed. Plan of Treatment: Continue with present treatment and follow up plan. Pt is to keep follow up appointment as instructed and take medications as ordered. Prescription drug monitoring program results: PDMP reviewed and no concerns identified Prescriptions: New levofloxacin 750 mg Tablet 750 mg PO QDAY Qty: 5 0RF prednisone 20 mg Tablet 40 mg PO QDAY Qty: 5 0RF Orders to Discharge Patient Discharge Orders: Discharge (Routine); Ordered 08/03/24 Ordered By: Liliam Traylor Follow ups/Referrals Follow ups/Referrals: Kp Cleary MD [STAFF PHYSICIAN, MEDICAL] - 08/08/24 1:45 pm Instructions Instructions: Shortness of Breath, Adult, [id number], Hypoxemia, Hypokalemia, Levofloxacin tablets, Prednisone tablets Stand Alone Forms: Excuse From Work or School, Find Help Web Site, Post Hospital Follow Up Care Print Language: SERBIAN
--- NOTE | 2024-08-07 16:28 | PCM.PROG ---
Progress Note Progress Note for Day of Date of Exam: 08/02/24 Subjective Subjective: Patient is a 28 year old male admitted for pneumonia and acute respiratory failure. This morning he is sitting up in bed. No acute events overnight. He remains on 2 L nasal cannula. He is currently on antibiotics and steroids. Labs/imaging reviewed: - WBC 13.2, hemoglobin 14.4, Plt 346, Na 138, potassium 4.2, creatinine 0.86, Glucose 130 - Blood cultures NGTD - AIT negative Plan: Continue to wean O2 as tolerated. Patient continues to improve. Continue IV antibiotics, steroids and bronchodilators. Continue IS. Continue hydration, continue cough medicine as needed. Replace electrolytes as per protocol. Monitor a.m. labs and imaging. Time spent for clinical assessment, reviewing labs/imaging, physical exam, decision making and documentation greater than 45 mins. Past Medical Family Social History Allergies: Allergies Penicillins Allergy (Severe, Verified 07/30/24 01:33) ANAPHALEXIS REACTION SEAFOOD Allergy (Severe, Verified 07/30/24 11:15) ANAPHALEXIS REACTION Review of Systems ROS changes noted: see HPI Physical Exam Oriented: Normal Throat: Normal Respiratory: Generalized and Wheezes Cardiovascular: Tachycardia Auscultation: Bowel Sounds: Normal Tenderness: Normal Skin: Normal Musculoskeletal: Normal Psychiatric: Normal Mood Description: Calm Affect: Normal Speech Pattern: Clear Laboratory and Diagnostics 08/03/24 04:30 08/03/24 04:30 Labs: 07/30/24 02:02 Blood Blood Culture - Final 07/30/24 01:56 Blood Blood Culture - Final 08/01/24 09:20 Sputum - Expectorated Sputum Sputum Culture - Final 08/01/24 09:20 Sputum - Expectorated Sputum - Final Laboratory WBC 14.1 X10^3/uL (3.6-10.0) H 08/03/24 04:30 RBC 5.33 X10^6/uL (4.7-6.0) 08/03/24 04:30 Hgb 14.2 g/dL (13.5-18.0) 08/03/24 04:30 Hct 43.0 % (42.0-54.0) 08/03/24 04:30 MCV 80.7 fL (80.0-100.0) 08/03/24 04:30 MCH 26.7 pg (27.0-34.0) L 08/03/24 04:30 MCHC 33.1 g/dL (33.0-35.0) 08/03/24 04:30 RDW 14.3 % (11.6-16.5) 08/03/24 04:30 Plt Count 355 X10^3/uL (150.0-450.0) 08/03/24 04:30 MPV 8.1 fL (7.4-11.0) 08/03/24 04:30 Neut % (Auto) 86.9 % (42.0-75.0) H 08/03/24 04:30 Lymph % (Auto) 8.9 % (21.0-51.0) L 08/03/24 04:30 [place] % (Auto) 3.7 % (0.0-13.0) 08/03/24 04:30 Eos % (Auto) 0.0 % (0.9-2.9) L 08/03/24 04:30 Baso % (Auto) 0.5 % (0.2-1.0) 08/03/24 04:30 Neut # (Auto) 12.3 x10^3/uL (2.2-4.8) H 08/03/24 04:30 Lymph # (Auto) 1.3 X10^3/uL (1.3-2.9) 08/03/24 04:30 [place] # (Auto) 0.5 x10^3/uL (0.3-0.8) 08/03/24 04:30 Eos # (Auto) 0.0 x10^3/uL (0.0-0.2) 08/03/24 04:30 Baso # (Auto) 0.1 X10^3/uL (0.0-0.1) 08/03/24 04:30 Absolute Nucleated RBC 0.1 /100WBC 08/03/24 04:30 D-Dimer 0.35 ug/ml (0.0-0.57) 07/30/24 01:56 Sample Site Rr 07/30/24 01:08 ABG pH 7.440 (7.35-7.45) 07/30/24 01:08 ABG pCO2 39.0 mmHg (35.0-45.0) 07/30/24 01:08 ABG pO2 55.0 mmHg (80.0-100.0) L 07/30/24 01:08 ABG HCO3 26.5 mmol/L (22-26) H 07/30/24 01:08 ABG O2 Saturation 89.0 % (90-100) L 07/30/24 01:08 ABG Base Excess 2.2 mmol/L (-2.0-2.0) H 07/30/24 01:08 Trevor Test Pos 07/30/24 01:08 A-a Gradient 46.0 mmHg 07/30/24 01:08 FiO2 21.0 07/30/24 01:08 Blood Gas Comments Glenn well ae 07/30/24 01:08 Sodium 140 mmol/L (136-145) 08/03/24 04:30 Corrected Sodium 141 mmol/L (136-145) 08/03/24 04:30 Potassium 3.9 mmol/L (3.5-5.1) 08/03/24 04:30 Chloride 104 mmol/L (98-107) 08/03/24 04:30 Carbon Dioxide 28.0 mmol/L (21-32) 08/03/24 04:30 BUN 12 mg/dL (7-18) 08/03/24 04:30 Creatinine 0.77 mg/dL (0.70-1.30) 08/03/24 04:30 Est GFR (MDRD) Af Amer > 60 (>60) 08/03/24 04:30 Est GFR (MDRD) Non-Af > 60 (>60) 08/03/24 04:30 Glucose 129 mg/dL (65-99) H 08/03/24 04:30 Lactic Acid 0.9 mmol/L (0.4-2.0) 07/30/24 01:56 Calcium 8.8 mg/dL (8.5-10.1) 08/03/24 04:30 Corrected Calcium 9.4 mg/dL (8.5-10.1) 08/03/24 04:30 Magnesium 2.1 mg/dL (2.0-2.9) 07/30/24 04:18 Total Bilirubin 0.30 mg/dL (0.2-1.0) 08/03/24 04:30 AST 22 Units/L (15-37) 08/03/24 04:30 ALT 77 Units/L (12-78) 08/03/24 04:30 Alkaline Phosphatase 68 Units/L (46-116) 08/03/24 04:30 Total Protein 6.9 g/dL (6.4-8.2) 08/03/24 04:30 Albumin 3.3 g/dL (3.4-5.0) L 08/03/24 04:30 Globulin 3.6 g/dL (2.5-4.5) 08/03/24 04:30 Albumin/Globulin Ratio 0.9 Ratio (1.1-2.1) L 08/03/24 04:30 SARS-CoV-2 (PCR) Negative (NEGATIVE) 07/30/24 00:35 Influenza Type A (PCR) Negative (NEGATIVE) 07/30/24 00:35 Influenza Type B (PCR) Negative (NEGATIVE) 07/30/24 00:35 RSV (PCR) Negative (NEGATIVE) 07/30/24 00:35 Resp Viral Panel (PCR) See scanned report 07/30/24 03:15 S. pyogenes (TEM-PCR) Not detected (NOT DETECT) 07/30/24 00:35 Plan (1) Acute respiratory failure: Status: Acute Qualifiers: Respiratory failure complication: hypoxia Qualified Code(s): J96.01 - Acute respiratory failure with hypoxia (2) Hypoxia: Status: Acute (3) Pneumonia: Status: Acute Qualifiers: Laterality: right Lung location: lower lobe of lung Pneumonia type: d ue to unspecified organism Qualified Code(s): J18.9 - Pneumonia, unspecified organism (4) Hypokalemia: Status: Acute
== END 2024-08-03 18:05 | disposition home or self-care (01) ==
LOC: ER 00:13 → INTOOBSV 02:36 → ICU 02:36 → MED/SURG 08-02 14:20
PROVIDERS: ADMIT Family Medicine; ATTEND Family Medicine
DX: J18.8 Other pneumonia, unspecified organism; Z59.12 Inadequate housing utilities; E87.6 Hypokalemia; Z03.818 Encounter for observation for suspected exposure to other biological agents ruled out; R00.0 Tachycardia, unspecified; J96.01 Acute respiratory failure with hypoxia